=== PATIENT | female | born 1975 | race Caucasian/White ===

== ENCOUNTER 2017-04-29 05:15 | Inpatient (IN) | payer OTHER ==
[~2017-04-29] VITALS: Ht 160 cm; Wt 110.2 kg
--- NOTE | ~2017-04-29 | O ---
[facility] [place] [address] OPERATIVE REPORT Name: JENNY HERNÁNDEZ Room #: 437-P [facility] [place] .R.#: [id number] Admission: 04/29/17 Attend Phys: Merrill Marcos MD, F Discharge: 04/30/17 Date of : 79 Report #: [id number] THIS REPORT FOR: //name// CC: Kaleigh Macario Merrill Marcos DATE OF SERVICE: 04/29/2017 SURGEON: Merrill Marcos MD MECHANICAL DRAFTER: Chele Pathak MD PREOPERATIVE DIAGNOSES: 1. Morbid obesity. 2. Gastroesophageal reflux disease. 3. Depression. 4. Renal insufficiency. POSTOPERATIVE DIAGNOSES: 1. Morbid obesity. 2. Gastroesophageal reflux disease. 3. Depression. 4. Renal insufficiency. PROCEDURE: Laparoscopic sleeve gastrectomy with EGD. ANESTHESIA: General endotracheal anesthesia and local anesthetic. ESTIMATED BLOOD LOSS: 10 mL. SPECIMEN: Lateral stomach. COMPLICATIONS: None appreciated. INDICATIONS FOR PROCEDURE: This is a 41-year-old female patient who stands 5 feet 3-1/2 inches and weight 248.5 pounds at her last visit with a BMI of 43.3. She has had difficulty with her weight mostly over the past 7 years. 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 She also has bilateral knee pain. She has tried numerous diets and exercises with limited weight loss success. The most weight she has lost in the past is 50 pounds with a low carbohydrate diet. Any amount of weight she has lost, she has quickly regained plus additional weight after stopping the modality. She has been cleared from a multidisciplinary standpoint and presents today for a laparoscopic sleeve gastrectomy with EGD. OPERATIVE FINDINGS: On EGD, the patient had a normal appearing esophagus down [address] [address] OPERATIVE REPORT Name: BETTYJENNY J Room #: 437-P [facility] IN ..#: [id number] Admission: 04/29/17 Attend Phys: Merrill Marcos MD, F Discharge: 04/30/17 Date of : 79 Report #: [id number] to the GE junction and Z line measured at 39 cm from the teeth. The stomach and duodenum to the third portion were without masses, diverticula, or ulcers. No hiatal hernia was evident on endoscopy. Laparoscopically, the stomach was enlarged. The liver showed fatty changes without teagan steatohepatitis. The spleen, colon, and small-bowel in the surrounding area appeared otherwise normal. The gastric sleeve staple line was 4 cm lateral to the pylorus, 3 cm lateral to the incisura, and 1 cm lateral to the GE junction. There was no evidence for staple line leak (negative leak test). Immediately after applying Tisseel to the staple line, the gastroscope was used to insufflate the gastric sleeve. No air bubbles were seen forming in the Tisseel. Likewise, the sleeve was hemostatic endoluminally. No other significant intraabdominal pathology was identified. There was no evidence for iatrogenic injury. At the conclusion of the operation, the sponge, needle, and instrument counts were correct. The excised stomach held 1 liter of fluid. DESCRIPTION OF PROCEDURE IN DETAIL: After the benefits and risks of the procedure were explained to the patient which include but are not limited to risks of bleeding, infection, postoperative pain, postoperative expectations and risks of DVT and pulmonary embolus, informed consent was obtained. The patient was identified in the preoperative holding area. The patient was given IV antibiotics as documented in the chart in line with SCIP protocol. The patient was then taken to the operating room and was placed in the supine position. The patient was given IV sedation and was intubated without incident. SCDs were placed on the patient's bilateral lower extremities prior to induction of anesthesia. The patient had been placed in the modified low lying dorsal lithotomy position in stirrups on the beanbag. The beanbag and the patient were taped to the bed to secure the patient. A time-out was then performed to correctly identify the patient and procedure. An orogastric tube was placed by anesthesia. A bite block was placed and the fiberoptic EGD scope was passed into the patient's oropharynx, down the esophagus, into the stomach, and into the third portion of the duodenum. Findings are as noted above. The scope was slowly withdrawn into the antrum and the scope was retroflexed. The hiatus was visualized. The scope was then straightened and the end of the gastroscope was placed at the pylorus. The stomach was decompressed with the scope. The patient's abdomen was then prepped and draped in the standard sterile fashion with surgical prep. Local anesthetic was infiltrated into the skin and subcutaneous tissue in the left supraumbilical area where a sharp #15-blade scalpel was used to make a 5-mm incision. The 5-mm Visiport was placed intraperitoneally with the 5-mm 0-degree angled laparoscope. Pneumoperitoneum was then achieved with insufflation of carbon dioxide to 15 mmHg. A 5-mm 30-degree angled laparoscope was then inserted. The 15-mm port was placed in the right supraumbilical area after local anesthetic was infiltrated into the [address] [address] OPERATIVE REPORT Name: JENNY HERNÁNDEZ Room #: 437-P [facility]#: [id number] Admission: 04/29/17 Attend Phys: Merrill Marcos MD, F Discharge: 04/30/17 Date of : 79 Report #: [id number] skin and subcutaneous tissue and an appropriately sized incision was made. Two additional 5 mm ports were placed in the left abdomen after local anesthetic was infiltrated and incisions were made. All ports were placed under direct visualization. The patient was then placed in reverse Trendelenburg position. Local anesthetic was infiltrated into the skin and subcutaneous tissue in the subxiphoid area and a 5-mm incision was made through which a 5-mm obturator was passed into the abdominal cavity through the fascia to create a passageway for the John liver retractor. The retractor was placed to retract the liver anteriorly. The retractor was held in place with the Iron Wood Heel Flap Trimmer apparatus. All abdominal adhesions were then taken down with blunt dissection, sharp dissection and judicious use of the ultrasonic dissector. The gastrosplenic ligament and short gastric vessels were then divided using the ultrasonic dissector with appropriate traction. Bleeding points were made hemostatic with the ultrasonic dissector. Dissection was carried proximally up to the left galdino of the diaphragm. The distal end point of dissection was then measured at 4 cm proximal to the pylorus. The short gastric vessels and gastrocolic ligaments were dissected to that level. The stomach was then rotated medially to visualize any posterior attachments/adhesions to the stomach. The adhesions were dissected with a combination of sharp dissection and use of the ultrasonic dissector. The endoscope was then slightly withdrawn to place it along the lesser curvature of the stomach. Suction was applied to the orogastric tube which was then removed, leaving the endoscope in place as a 34-Armenian bougie. The gastric sleeve was then created. Two black loads of the powered endoscopic LANE stapler buttressed with Cata-Strips were used to staple and divide the stomach 4 cm proximal to the pylorus. Additional green loads buttressed with Cata-strips were used to staple off the remainder of the stomach using the endoscope as the bougie. Care was taken to ensure that greater than 3 cm of space was present between the incisura and the staple line. The stomach was fully transected and placed in the right upper quadrant of the abdomen for later removal. The staple line of the sleeve was then clipped with Hemoclips at the distal staple line to provide hemostasis. Tisseel was applied to the entire length of the staple line with the [employer] aerosolizer to fully ensure hemostasis. A leak test was performed next. The sleeve was insufflated with the endoscope which was slowly withdrawn. No air bubbles were seen in the Tisseel laparoscopically. Endoluminally, no bleeding was seen. The stomach was fully decompressed and the scope was slowly withdrawn. The John liver retractor was then loosened from the Iron Wood Heel Flap Trimmer apparatus and it was removed without difficulty. The stomach was then removed from the patient's body through the 15-mm port under direct visualization. A small amount stretching of the fascia was [facility] [address] [place] [address] OPERATIVE REPORT Name: JENNY HERNÁNDEZ Aly Room #: 437-P [facility] IN M.R.#: [id number] Admission: 04/29/17 Attend Phys: Merrill Marcos MD, F Discharge: 04/30/17 Date of : 79 Report #: [id number] required to create an opening large enough for removal of the stomach. After its removal, the 15-mm port site fascial opening was closed with an 0-PDS suture using the Myke-Froilan laparoscopic fascial closure device. All ports were removed after the abdominal cavity was desufflated. The fascial suture was tied. Interrupted subcuticular 4-0 Monocryl sutures and Dermabond were used to close all skin incisions. The patient tolerated the procedure well. The patient was awakened, extubated and taken to the recovery room in stable condition with no apparent intraoperative complications. <ELECTRONICALLY SIGNED> By: Merrill Marcos MD, FACS 05/06/17 1154 13 39 Merrill Marcos MD, FACS /nt
--- NOTE | ~2017-04-29 | S ---
[facility] [place] [address] SURGICAL PATH RPT PROCEDURE Name: JENNY CEJA Room #: 437-P [facility] IN M.R.#: [id number] Admission: 04/29/17 Date of : 79 Discharge: 04/30/17 Report #: [id number] Path Case #: [id number] PATHOLOGY REPORT COLLECTION DATE: 04/29/2017 RECEIVED DATE: 04/29/2017 SUBMITTING PHYS: Dr. Merrill Marcos OTHER PHYS: Dr. Chele Pathak SPECIMEN(S) RECEIVED: A.Stomach * * * * * * * * * * * * FINAL DIAGNOSIS: Stomach, partial gastrectomy: - Fundic gland polyps x 4. - Negative for dysplasia or malignancy. - No significant diagnostic abnormalities present within the remainder of the specimen, history of moderate obesity. (IUV:mgr; 04/30/2017) PATHOLOGIST: Christine Schwartz M.D. REPORT ELECTRONICALLY SIGNED BY: Christine Schwartz M.D. DATE/TIME: 04/30/2017 16:52 * * * * * * * * * * * * GROSS PATHOLOGY: The specimen is received in formalin, labeled "Jenny Ceja and stomach", is a portion of stomach measuring approximately 20 x 4.0 x 2.5 cm with a staple line measuring 1.5 x 5.4 x 1.5 cm. The serosal surface is glistening, schmidt smooth. Opening the segment reveals multiple schmidt polyps ranging from 0.3 up to 0.8 cm in greatest dimension the remaining mucosal surface schmidt with the usual folds. The polyps are entirely submitted and representative phlebotomy services sections as follows: A1 single polyp bisected A2 single polyp bisected A3 two polyps bisected, one inked black A4 gastric mucosa (SWS; 04/29/2017) CLINICAL HISTORY: Morbid obesity INITIAL CPT CODE(S): [facility] [place] [address] SURGICAL PATH RPT PROCEDURE Name: JENNY CEJA Room #: 437-P [facility] IN M.R.#: [id number] Admission: 04/29/17 Date of : 79 Discharge: 04/30/17 Report #: [id number] Path Case #: [id number]; [id number] Professional services performed by [facility] at [place] [address], [place] [address] Technical services performed by [facility] at [address] [place] [address], [place] [address]. [facility] [place] [address] PHONE: [phone] DIRECTOR: Gabriele Campa M.D. * * * END OF REPORT * * *
[~2017-04-29 05:15] MED LIST: AMBIEN 10 MG TA10 MG PO; ANAPROX DS550 MG PO; AZITHROMYCIN 2250 MG; AZITHROMYCIN 2250 MG PO; BACTRIM DS TAB1 EACH PO; BIRTH CONTROL; CONCERTA27 MG PO; CORTISPORIN OTI10 ML OTIC; DEPO-PROVE150 MG/1 M IM; DESYREL50 MG PO; DIFLUCAN150 MG PO; ERYTHROMYCIN500 MG PO; IBUPROFEN 600600 M1 PO; IBUPROFEN 800800 M1 PO; KEFLEX500 MG PO; MULTIVITAMINS; OMEPRAZOLE; OMEPRAZOLE 20 M20 M1 PO; ONDANSETRON HCL4 M2 PO; POTASSIUM GLUC500 MG PO; SEASONALE1 EACH PO
[2017-04-29 07:30] VITALS: BP 115/73
[2017-04-29] MEDS ORDERED: ZOFRAN ODT4 MG PO (12:13)
[2017-04-29] MEDS ORDERED: HYDROCODONE-ACE15 ML PO (12:13)
[2017-04-29 14:20] VITALS: BP 145/82
[2017-04-29 16:00] VITALS: BP 130/77
[2017-04-29 19:40] VITALS: BP 123/74
[2017-04-30 04:00] VITALS: BP 102/54
[2017-04-30 06:08] LABS: ABSOLUTE NEUTROPHILS 12.7 thou/uL (1.4-8.2); BASOPHILS 0.1 % (0.0-2.0); HEMATOCRIT 39.2 % (37.0-47.0); HEMOGLOBIN 13.2 gm/dL (12.0-15.0); LYMPHOCYTES 9.6 % (24.0-44.0); MCH 31.2 pg (26.0-34.0); MCHC 33.7 g/dL (28.0-37.0); MCV 92.4 fL (80.0-100.0); MONOCYTES 5.1 % (1.0-8.0); PLATELET COUNT 257 thou/uL (150-400); POLYS 85.2 % (36.0-66.0); RBC 4.24 mil/uL (4.20-5.00); RDW 12.3 % (10.5-14.5)
[2017-04-30 06:09] LABS: MANUAL DIFF NO
[2017-04-30 06:22] LABS: CREATININE 0.9 mg/dL (0.6-1.0)
[2017-04-30 07:37] VITALS: BP 119/66
[2017-04-30 08:00] VITALS: BP 119/66
[2017-04-30 09:28] VITALS: BP 119/66
[2017-05-01] MEDS ORDERED: ZOFRAN ODT4 MG PO (00:44)
[2017-05-01] MEDS ORDERED: PHENERGAN 25 MG25 M1 PO (00:44)
[2017-05-01] MEDS ORDERED: HYDROCODONE-ACE15 ML PO (01:16)
== END 2017-04-30 12:02 | disposition home or self-care (01) | DRG 621 ==
LOC: OR 05:15 → TBA 05:15 → GI 10:04 → EDSTATUS 10:15 → OR 10:16 → 4S 14:26 → ENTRNSPT 04-30 11:30 → EDTRNSPTSTS 04-30 11:32 → 4S 04-30 12:02
PROVIDERS: Surgery
PROC: 0DB64Z3 Excision of Stomach, Percutaneous Endoscopic Approach, Vertical (ICD-10-PCS; principal; 2017-04-29)
DX: E66.01 Morbid (severe) obesity due to excess calories (principal); K21.9 Gastro-esophageal reflux disease without esophagitis; F32.9 Major depressive disorder, single episode, unspecified; Z88.0 Allergy status to penicillin; Z68.41 Body mass index [BMI] 40.0-44.9, adult; Z88.8 Allergy status to other drugs, medicaments and biological substances; Z86.14 Personal history of Methicillin resistant Staphylococcus aureus infection; Z80.59 Family history of malignant neoplasm of other urinary tract organ; Z80.8 Family history of malignant neoplasm of other organs or systems
CPT/HCPCS: 10100; 50010; 50101; 50222; 50249; 50555; 50739; 50740; 50962; 51436; 51437; 51489; 52182; 52265; 53307; 53311; 54022; 54118; 55245; 56462; 56525; 56526; 57092; 62110; 62900; 70005